=== PATIENT | female | born 2000 | race Caucasian/White ===

== ENCOUNTER → 2024-05-03 | Outpatient (CLI) | payer SELFPAY ==
--- NOTE | 2024-05-03 08:50 | US_ITS ---
STUDY: ULTRASOUND BREAST - RIGHT REASON FOR EXAM: Female, 24 years old. Bilateral pain/tenderness. TECHNIQUE: Axial and longitudinal images of the RIGHT breast were performed with a high resolution ultrasound transducer. # OF IMAGES: 75 COMPARISON: None. FINDINGS: RIGHT Breast: The entire right breast was examined with ultrasound. No sonographic abnormality is seen. There is dense fibroglandular tissue. IMPRESSION: Dense fibroglandular tissue. No sonographic abnormality is seen. ASSESSMENT CATEGORY: BIRADS Category 1: Negative. A letter regarding these results will be sent to the patient by the facility within 30 days. Electronically Signed: Patrick Macias MD at 14:43 EDT , STUDY: ULTRASOUND BREAST - LEFT REASON FOR EXAM: Female, 24 years old. Pain in the left breast. TECHNIQUE: Axial and longitudinal images of the LEFT breast were performed with a high resolution ultrasound transducer. # OF IMAGES: 75 COMPARISON: None. FINDINGS: LEFT Breast: The entire left breast was examined with ultrasound. No sonographic abnormality is seen. Dense fibroglandular tissue. US/Breast Limited Unilateral IMPRESSION: Dense fibroglandular tissue. No sonographic abnormality is seen. ASSESSMENT CATEGORY: BIRADS Category 1: Negative. A letter regarding these results will be sent to the patient by the facility within 30 days. Electronically Signed: Patrick Macias MD at 14:44 EDT ,
== END | disposition home or self-care (01) ==
PROVIDERS: PCP Nurse Practitioner Family; Referring Provider Nurse Practitioner Family; Visit Provider Nurse Practitioner Family
DX: N64.4 Mastodynia (principal)
CPT/HCPCS: 76642